=== PATIENT | female | born 1960 | race American Indian/Alaskan Native ===

== ENCOUNTER 2017-06-17 07:58 | Day surgery (SDC) | payer MEDICARE, OTHER ==
[~2017-06-17 07:58] MED LIST: ANCEF/STERILE WATER 2 GM/20 ML 2 GM/20 ML SYRINGE IV NR; LIDOCAINE 1.5%/EPI 1:200,000 INFILTRATI ONE; MARCAINE 0.5% INFILTRATI ONE; NACL 0.9% 1000 ML 1,000 ML IV SCH
[2017-06-17] MEDS ORDERED: XYLOCAINE 1% MPF 5 mL ONE ×2 (08:07→09:08)
[2017-06-17] MEDS ORDERED: SODIUM BICARBONATE ONE (08:25)
[2017-06-17 08:29] VITALS: BP 128/84
[2017-06-17] MEDS ORDERED: XYLOCAINE 1% MPF 5 mL INFILTRATI ONE ×3 (08:50)
[2017-06-17] MEDS ORDERED: SODIUM BICARBONATE IV ONE (08:50)
[2017-06-17] MEDS ORDERED: MARCAINE 0.5% INFILTRATI ONE (08:50)
--- NOTE | 2017-06-17 10:52 | Short Stay Summary ---
Short Stay Documentation Date of service: 06/17/17 Narrative H&P: Admitted to the minor surgical operative suite for outpatient bilateral temporal artery biopsy - History H&P: obtained from office - Allergies and Medications Current Medications: Allergies amlodipine [From Norvasc] Allergy (Verified 06/16/17 12:26) Nausea, dizziness gabapentin Allergy (Verified 06/16/17 12:26) Rash Penicillins Allergy (Verified 06/16/17 12:26) Anaphylaxis pregabalin [From Lyrica] Allergy (Verified 06/16/17 12:26) Swelling , rash lisinopril Adverse Reaction (Verified 06/16/17 12:26) cough Home Medications Medication Instructions Recorded Confirmed Last Taken Type Cetirizine HCl [Allergy Relief] 10 mg PO DAILY 06/16/17 06/16/17 Unknown History Fluticasone [Flonase] 1 spray IH BID 06/16/17 06/16/17 Unknown History Hydrochlorothiazide [HCTZ] 25 mg PO DAILY 06/16/17 06/16/17 Unknown History LORazepam [Ativan] 1 mg PO PRN PRN 06/16/17 06/16/17 Unknown History Zolpidem Tartrate 5 mg PO HS 06/16/17 06/16/17 Unknown History oxyCODONE /ACETAMINOPHEN [Percocet 1 tab PO Q4HR PRN 06/16/17 06/16/17 Unknown History 5/325] - Brief post op/procedure progress note Date of procedure: 06/17/17 Pre-op diagnosis: temporal arteritis Post-op diagnosis: same Procedure: Pre-operative diagnosis: temporal arteritis Post-operative diagnosis: Same Procedure name(s): Bilateral temporal artery biopsy Surgeon: uLis Michele MD Anesthesia: Local BL: Minimal Specmen(s): Bilateral temporal arteries Complications: None Finding: Arteries grossly normal Prcedure: Patient in supine position with the head rotated to the right the right preauricular area was then prepped and draped using standard sterile technique. Through anesthetized skin over vertical incision was made extending just above the ear to the penicle. Incision was then sharply deepened until the fascia was encountered below that level the artery was not immediately identified. After a few minutes, the doppler probe was used to identify the artery's location and it was subsequently visualized and then mobilized and ligated proximally and distally. A 1-1/2 cm segment was then removed and placed in specimen cup for permanent sections. The incision was then blocked using 0.5% Marcaine and then closed in layers using interrupted 3-0 Vicryl for the subcutaneous and 4-0 Monocryl subcuticular. The skin was sealed with dermabond. After the skin seal bonded, the left preauricular area was prepped and draped using identical technique. A symmetrical incision was then placed in the preauricular location and an identical procedure was then followed thus mobilizing ligating and excising a 1-1/2 cm segment of the superficial temporal artery. Hemostasis was excellent and the incision was then blocked with Marcaine and closed again using 3-0 Vicryl interrupted subcutaneous with 4-0 Monocryl subcuticular suture. The skin was sealed with dermabond. Patient then was returned to the supine position and discharged home in stable condition having tolerated procedure well. Sponge and needle counts correct. Specimens were sent to the lab for permanent sectioning. Anesthesia: local Findings: Temporal arteries grossly normal. Sent to pathology for evaluation Surgeon: LUIS MICHELE Estimated blood loss: minimal Pathology: list (bilateral temporal arteries) Specimen disposition: to lab Condition: stable - Hospital course Hospital course: Benign - Disposition Condition at discharge: Stable - Discharge Diagnoses (1) Temporal arteritis Status: Acute Short Stay Discharge Plan Activity: advance as tolerated Diet: regular Wound: keep clean and dry Special Instructions: no heavy lifting Follow up with: KATRINA MURPHY JR., MD [Primary Care Provider] - 7 Days Forms: [facility] [place] [facility]
== END 2017-06-17 10:52 | disposition home or self-care (01) ==
LOC: OR 07:58
PROVIDERS: ATTEND Surgery Vascular Surgery
DX: M31.6 Other giant cell arteritis (principal); I10 Essential (primary) hypertension; G47.09 Other insomnia; G62.9 Polyneuropathy, unspecified; M10.9 Gout, unspecified; E66.9 Obesity, unspecified; F41.9 Anxiety disorder, unspecified; Z88.0 Allergy status to penicillin; Z88.8 Allergy status to other drugs, medicaments and biological substances; Z68.36 Body mass index [BMI] 36.0-36.9, adult
CPT/HCPCS: 88305; 88313